=== PATIENT | female | born 1965 | race Caucasian/White ===

== ENCOUNTER → 2016-11-10 | Outpatient (CLI) | payer OTHER ==
[2016-06-14 11:32] VITALS: BP 144/69
[~2016-11-10] MED LIST: ADAL40PE SQ; ASCO500T2 PO; ERGO500012 PO; EZET10TA3 PO; NIAC500T PO; OMEG10005 PO; TEST200V3 IM; THYR30TA2 PO; [UNRECOGNIZED DRUG - OTHER]; [UNRECOGNIZED DRUG - OTHER]
[2016-11-11 01:14] LABS: ESTRADIOL LEVEL 7.1 pg/mL (.); TESTOSTERONE TOTAL 11 ng/dL (3-41); VITAMIN D25(OH)TOTAL 19.6 ng/mL (30.0-100.0)
== END | disposition home or self-care (01) ==
LOC: LAB 08:09
PROVIDERS: ATTEND Nurse Practitioner Women's Health
DX: R73.09 Other abnormal glucose (principal); E55.9 Vitamin D deficiency, unspecified; E78.1 Pure hyperglyceridemia; N95.8 Other specified menopausal and perimenopausal disorders; F52.0 Hypoactive sexual desire disorder
CPT/HCPCS: 36415; 82306; 82670; 82679; 83036; 83525; 84403

== ENCOUNTER → 2017-01-26 | Outpatient (CLI) | payer OTHER ==
[2016-06-14 11:32] VITALS: BP 144/69
[~2017-01-26] MED LIST changes: +BARIUM SULFATE 60% 355 ML SUSP PO ONE
--- NOTE | 2017-01-26 09:22 | RAD ---
Small bowel series, 01/26/2017: History: Crohn's disease The preliminary abdominal image demonstrates a nonspecific gas pattern. Surgical sutures are present in the right upper quadrant. Overhead and spot films were obtained following oral ingestion of liquid barium. 1.8 minutes of fluoroscopy time was utilized. There is prompt passage of the barium through the small bowel into the colon. The small bowel loops are of normal caliber with no evidence of thickening of their folds. This patient has undergone previous distal ileal resections. The ileocolic anastomosis is widely patent. No distal ileal stricture or fistula tract is evident. The visualized portions of the right colon demonstrates slight mucosal irregularity. IMPRESSION: 1. No significant small bowel abnormality is detected. 2. Unremarkable ileocolic anastomosis. 3. Minimal mucosal irregularity in the right colon suggesting active inflammation.
== END | disposition home or self-care (01) ==
LOC: RAD 07:29
PROVIDERS: ATTEND Physician Assistant
DX: K50.90 Crohn's disease, unspecified, without complications (principal)
CPT/HCPCS: 74250

== ENCOUNTER → 2017-06-15 | Outpatient (CLI) | payer OTHER ==
[2016-06-14 11:32] VITALS: BP 144/69
[~2017-06-15] MED LIST changes: -BARIUM SULFATE 60% 355 ML SUSP PO ONE; -ERGO500012 PO; +ERGO500027 PO; +EZET10TA18 PO; -EZET10TA3 PO
[2017-06-15 07:23] LABS: BASO % 0 % (0-3); EOS % 4 % (0-3); HEMATOCRIT 42.9 % (36.0-47.0); HEMOGLOBIN 14.4 g/dL (12.0-15.5); LYMPH # 4.1 x10^3/uL (1.0-4.8); LYMPH % 48 % (24-48); MEAN CORPUSCULAR HEMOGLOBIN 30 pg (25-35); MEAN CORPUSCULAR HGB CONC 34 g/dL (31-37); MEAN CORPUSCULAR VOLUME 88 fL (79-100); MONO % 8 % (0-9); NEUT % 40 % (31-73); PLATELET COUNT 203 x10^3/uL (140-400); RED BLOOD COUNT 4.87 x10^6/uL (3.50-5.40); RED CELL DISTRIBUTION WIDTH 14.8 % (11.5-14.5); WHITE BLOOD COUNT 8.6 x10^3/uL (4.0-11.0)
[2017-06-15 07:50] LABS: ALBUMIN 3.9 g/dL (3.4-5.0); ALBUMIN/GLOBULIN RATIO 1.1 (1.0-1.7); ALK PHOS 76 U/L (46-116); ALT (SGPT) 94 U/L (14-59); ANION GAP 9 (6-14); AST (SGOT) 42 U/L (15-37); BLOOD UREA NITROGEN 14 mg/dL (7-20); BUN/CREATININE RATIO 16 (6-20); CALCIUM 10.1 mg/dL (8.5-10.1); CARBON DIOXIDE 28 mmol/L (21-32); CHLORIDE 102 mmol/L (98-107); CHOLESTEROL 287 mg/dL (0-200); CREATININE 0.9 mg/dL (0.6-1.0); GFR 65.2; GLUCOSE 107 mg/dL (70-99); HDLC 35 mg/dL (40-60); NON-HDL CHOLESTEROL 252 mg/dL (0-129); POTASSIUM 4.2 mmol/L (3.5-5.1); SODIUM 139 mmol/L (136-145); TOTAL BILIRUBIN 0.4 mg/dL (0.2-1.0); TOTAL PROTEIN 7.5 g/dL (6.4-8.2); TRIGLYCERIDES 620 mg/dL (0-150)
[2017-06-15 07:53] LABS: CHOLESTEROL/HDL RATIO 8.2; FREE T4 0.8 ng/dL (0.76-1.46)
[2017-06-16 01:11] LABS: VITAMIN D25(OH)TOTAL 16.1 ng/mL (30.0-100.0)
== END | disposition home or self-care (01) ==
LOC: LAB 06:47
PROVIDERS: ATTEND Family Medicine
DX: E03.9 Hypothyroidism, unspecified (principal); E78.5 Hyperlipidemia, unspecified; K50.90 Crohn's disease, unspecified, without complications; R73.09 Other abnormal glucose
CPT/HCPCS: 36415; 80053; 80061; 82306; 83036; 84439; 84443; 85025

== ENCOUNTER → 2017-07-06 | Outpatient (CLI) | payer OTHER ==
[2016-06-14 11:32] VITALS: BP 144/69
--- NOTE | 2017-07-06 10:47 | RAD ---
DATE: 07/06/2017 EXAM: DIGITAL SCREEN BILAT W/CAD HISTORY: Screening COMPARISON: 11/25/2013 This study was interpreted with the benefit of Computerized Aided Detection (CAD). FINDINGS: Breast Density: SCATTERED The breast parenchyma shows scattered fibroglandular densities. Breast parenchyma level B. There has been little change in the appearance of the breasts compared to the previous exam IMPRESSION: Benign findings BI-RADS CATEGORY: 2 BENIGN FINDING(S) RECOMMENDED FOLLOW-UP: 12M 12 MONTH FOLLOW-UP PQRS compliance statement: Patient information was entered into a reminder system with a target due date 07/06/2018 for the next mammogram. Mammography is a sensitive method for finding small breast cancers, but it does not detect them all and is not a substitute for careful clinical examination. A negative mammogram does not negate a clinically suspicious finding and should not result in delay in biopsying a clinically suspicious abnormality. "Our facility is accredited by the [employer] Mammography Program."
--- NOTE | 2017-07-06 11:04 | RAD ---
Indication abnormal liver function tests. Grayscale imaging was performed. Examination was targeted to the right upper quadrant. Note is made of a previous abdominal ultrasound examination of the abdomen over 11 years ago interpreted as normal. There is increased attenuation of the ultrasound beam by the liver compatible with fatty infiltration. A focal mass lesion is not seen in the visualized liver. The gallbladder appears normal. The common bile duct of approximately 4 mm is normal. The visualized pancreas appeared unremarkable. The entire tail was not seen. The inferior vena cava appeared normal. The right kidney appeared unremarkable. IMPRESSION: Fatty infiltration of the liver. No additional finding seen in the right upper quadrant
== END | disposition home or self-care (01) ==
LOC: US 07:50
PROVIDERS: ATTEND Family Medicine
DX: Z12.31 Encounter for screening mammogram for malignant neoplasm of breast (principal); K76.0 Fatty (change of) liver, not elsewhere classified; R79.89 Other specified abnormal findings of blood chemistry
CPT/HCPCS: 76700; G0202; 77067

== ENCOUNTER → 2017-08-24 | Outpatient (CLI) | payer OTHER ==
[2016-06-14 11:32] VITALS: BP 144/69
== END | disposition home or self-care (01) ==
LOC: LAB 08:13
PROVIDERS: ATTEND Physician Assistant
DX: K50.90 Crohn's disease, unspecified, without complications (principal)
CPT/HCPCS: 36415; 82607; 86140; 86481

== ENCOUNTER → 2017-08-24 | Outpatient (CLI) | payer OTHER ==
[2016-06-14 11:32] VITALS: BP 144/69
[2017-08-24 09:02] LABS: ALBUMIN 3.9 g/dL (3.4-5.0); CALCIUM 9.5 mg/dL (8.5-10.1); CREATININE 0.9 mg/dL (0.6-1.0); GFR 65.2; POTASSIUM 4.3 mmol/L (3.5-5.1); TOTAL BILIRUBIN 0.5 mg/dL (0.2-1.0); TOTAL PROTEIN 7.8 g/dL (6.4-8.2)
[2017-08-24 09:04] LABS: CHOLESTEROL/HDL RATIO 4.3
== END | disposition home or self-care (01) ==
LOC: LAB 08:07
PROVIDERS: ATTEND Family Medicine
DX: E78.5 Hyperlipidemia, unspecified (principal)
CPT/HCPCS: 36415; 80053; 80061

== ENCOUNTER → 2017-11-21 | Outpatient (CLI) | payer OTHER ==
[2017-11-21 08:44] LABS: ALBUMIN 3.8 g/dL (3.4-5.0); ALBUMIN/GLOBULIN RATIO 1.1 (1.0-1.7); ALK PHOS 76 U/L (46-116); ALT (SGPT) 148 U/L (14-59); ANION GAP 11 (6-14); AST (SGOT) 73 U/L (15-37); BLOOD UREA NITROGEN 12 mg/dL (7-20); BUN/CREATININE RATIO 13 (6-20); CALCIUM 9.5 mg/dL (8.5-10.1); CARBON DIOXIDE 26 mmol/L (21-32); CHLORIDE 104 mmol/L (98-107); CHOLESTEROL 217 mg/dL (0-200); CREATININE 0.9 mg/dL (0.6-1.0); GFR 65.2; GLUCOSE 108 mg/dL (70-99); HDLC 47 mg/dL (40-60); LDLC 113 mg/dL (0-100); NON-HDL CHOLESTEROL 170 mg/dL (0-129); POTASSIUM 4.4 mmol/L (3.5-5.1); SODIUM 141 mmol/L (136-145); TOTAL BILIRUBIN 0.5 mg/dL (0.2-1.0); TOTAL PROTEIN 7.4 g/dL (6.4-8.2); TRIGLYCERIDES 287 mg/dL (0-150); VLDLC 57 mg/dL (0-40)
[2017-11-21 08:46] LABS: CHOLESTEROL/HDL RATIO 4.6
[2017-11-22 04:23] LABS: HEMOGLOBIN A1C 5.5 % (4.8-5.6)
== END | disposition home or self-care (01) ==
LOC: LAB 08:05
DX: E78.5 Hyperlipidemia, unspecified (principal); R73.09 Other abnormal glucose
CPT/HCPCS: 36415; 80053; 80061; 83036

== ENCOUNTER → 2018-03-14 | Outpatient (CLI) | payer OTHER | END | disposition home or self-care (01) | LOC: US 14:04 | DX: R22.43 Localized swelling, mass and lump, lower limb, bilateral (principal) | CPT/HCPCS: 93970 ==

== ENCOUNTER → 2018-03-15 | Outpatient (CLI) | payer OTHER ==
[2018-03-15 09:16] LABS: ALBUMIN 4.1 g/dL (3.4-5.0); ALBUMIN/GLOBULIN RATIO 1.1 (1.0-1.7); BLOOD UREA NITROGEN 12 mg/dL (7-20); CALCIUM 9.1 mg/dL (8.5-10.1); CREATININE 0.9 mg/dL (0.6-1.0); GLUCOSE 142 mg/dL (70-99); TOTAL PROTEIN 7.8 g/dL (6.4-8.2)
[2018-03-15 09:17] LABS: ALK PHOS 72 U/L (46-116); ALT (SGPT) 102 U/L (14-59); ANION GAP 6 (6-14); AST (SGOT) 53 U/L (15-37); BUN/CREATININE RATIO 13 (6-20); CARBON DIOXIDE 29 mmol/L (21-32); CHLORIDE 103 mmol/L (98-107); CHOLESTEROL 218 mg/dL (0-200); GFR 65.2; HDLC 40 mg/dL (40-60); LDLC 112 mg/dL (0-100); NON-HDL CHOLESTEROL 178 mg/dL (0-129); POTASSIUM 4.5 mmol/L (3.5-5.1); SODIUM 138 mmol/L (136-145); TOTAL BILIRUBIN 0.7 mg/dL (0.2-1.0); TRIGLYCERIDES 332 mg/dL (0-150); URIC ACID 6.7 mg/dL (2.6-6.0); VLDLC 66 mg/dL (0-40)
[2018-03-15 09:18] LABS: CHOLESTEROL/HDL RATIO 5.5
[2018-03-15 09:29] LABS: % SAT IRON 24 % (15-34); IRON,SERUM 83 ug/dL (50-170)
[2018-03-15 09:34] LABS: CREATINE KINASE 137 U/L (26-192)
[2018-03-15 09:34] LABS: C-REACTIVE PROTEIN 2.3 mg/L (0-3.3); FERRITIN 115 ng/mL (8-252)
[2018-03-15 10:01] LABS: SEDIMENTATION RATE 3 (0-25)
[2018-03-15 10:25] LABS: VITAMIN-B12 440 pg/mL (247-911)
[2018-03-15 23:13] LABS: ALPHA 1 ANTITRYPSIN 111 mg/dL (90-200); IMMUNOGLOBULIN A 189 mg/dL (87-352)
[2018-03-17 02:09] LABS: HBcIGM CONFIRMATION Negative (Negative); HCV ANTIBODY <0.1 s/co ratio (0.0-0.9); HEP A CONFIRMATION Negative (Negative); HEP B SURFACE AG Negative (Negative)
[2018-03-17 20:13] LABS: ANA INTERP Positive (.)
[2018-03-18 11:20] LABS: TRANSGLUTAMINASE IGA AB <2 U/mL (0-3)
[2018-03-18 13:18] LABS: MITOCHONDRIAL ABDY 3.9 Units (0.0-20.0); SMOOTH MUSCLE AB 10 Units (0-19)
[2018-03-18 14:23] LABS: CERULOPLASMIN 20.3 mg/dL (19.0-39.0)
[2018-03-18 15:22] LABS: A1A SERUM 107 mg/dL (90-200)
[2018-03-19 11:03] LABS: T-SPOT TB TEST(OXFORD) SEE SEPARATE REPORT
== END | disposition home or self-care (01) ==
LOC: LAB 08:05
DX: E78.5 Hyperlipidemia, unspecified (principal); M25.571 Pain in right ankle and joints of right foot; E55.9 Vitamin D deficiency, unspecified
CPT/HCPCS: 36415; 80053; 80061; 80074; 82103; 82104; 82390; 82550; 82607; 82728; 82784; 83516; 83520; 83540; 83550; 84550; 85651; 86038; 86140; 86255

== ENCOUNTER → 2018-08-14 | Outpatient (CLI) | payer OTHER ==
[2016-06-14 11:32] VITALS: BP 144/69
[2018-08-14 08:38] LABS: BASO % 0 % (0-3); EOS # 0.3 x10^3/uL (0.0-0.7); EOS % 4 % (0-3); HEMATOCRIT 40.9 % (36.0-47.0); HEMOGLOBIN 14.5 g/dL (12.0-15.5); LYMPH # 3.2 x10^3/uL (1.0-4.8); LYMPH % 46 % (24-48); MEAN CORPUSCULAR HEMOGLOBIN 31 pg (25-35); MEAN CORPUSCULAR HGB CONC 35 g/dL (31-37); MEAN CORPUSCULAR VOLUME 88 fL (79-100); MONO # 0.6 x10^3/uL (0.0-1.1); MONO % 9 % (0-9); NEUT # 2.9 x10^3uL (1.8-7.7); NEUT % 41 % (31-73); PLATELET COUNT 230 x10^3/uL (140-400); RED BLOOD COUNT 4.68 x10^6/uL (3.50-5.40); RED CELL DISTRIBUTION WIDTH 13.7 % (11.5-14.5)
[2018-08-14 08:50] LABS: ALBUMIN/GLOBULIN RATIO 1.1 (1.0-1.7); CALCIUM 9.7 mg/dL (8.5-10.1); GFR 57.6; POTASSIUM 4.7 mmol/L (3.5-5.1); TOTAL BILIRUBIN 0.5 mg/dL (0.2-1.0); TOTAL PROTEIN 7.5 g/dL (6.4-8.2)
[2018-08-14 09:02] LABS: FREE T4 0.86 ng/dL (0.76-1.46); THYROID STIM HORMONE (TSH) 1.586 uIU/mL (0.358-3.74)
[2018-08-14 19:17] LABS: HEMOGLOBIN A1C 5.8 % (4.8-5.6)
== END | disposition home or self-care (01) ==
LOC: LAB 08:11
PROVIDERS: ATTEND Family Medicine
DX: E78.5 Hyperlipidemia, unspecified (principal); E03.9 Hypothyroidism, unspecified; K50.90 Crohn's disease, unspecified, without complications; R73.09 Other abnormal glucose
CPT/HCPCS: 36415; 80053; 80061; 83036; 84439; 84443; 85025

== ENCOUNTER → 2018-09-18 | Day surgery (SDC) | payer OTHER ==
[~2018-09-18] MED LIST changes: +ASCO10002 PO; +CHOL100013 PO; +HYDR200T71 PO; +HYDROmorphone 2 MG/ML VIAL IV PRN; +IV RINGERS,LACTATED 1000ML 1,000 ML IV SCH; +LIDOCAINE 1% PF 2 ML VIAL. ID PRN; +MORPHINE SULFATE 2 MG/ML VIAL. IV PRN; +ONDANSETRON PF 4 MG/2 ML VIAL. IV PRN; +PROCHLORPERAZINE 10 MG/2 ML VIAL. IV PRN; +PROPOFOL 20 ML IV ONE; +[UNRECOGNIZED DRUG - CODE] IV; +fentaNYL PF VIAL 100 MCG/2 ML VIAL IV PRN
[2018-09-18 08:21] VITALS: BP 142/77
--- NOTE | 2018-09-18 12:39 | HP ---
ADMIT DATE: 09/18/2018 REFERRING PHYSICIAN: Dr. Anya Chicas. HISTORY OF PRESENT ILLNESS: A 53-year-old female with past medical history significant for longstanding ileocolonic Crohn's, status post resections; hyperlipidemia; anemia; reflux, who has developed drug-induced lupus with Humira. The patient ____ having insurance issues with coverage. Typically, his stools are several hours after meals. Weight and appetite otherwise have been stable. With continued issues and previous anastomotic stricture which had been resected, she is here for surveillance colonoscopy for dysplasia. PAST MEDICAL HISTORY: Crohn's, hypothyroidism, anemia, hyperlipidemia. ALLERGIES: SULFA. HUMIRA. MEDICATIONS: Include vitamin C, vitamin D, Zetia, Plaquenil, thyroid, Stelara. FAMILY HISTORY: Significant for hypertension with mother and maternal grandmother, colon cancer in an aunt. Diabetes in both parents, CVA with ____ grandmother. SOCIAL HISTORY: Smoker, social drinker. PAST SURGICAL HISTORY: Status post ileocolonic resection, , hysterectomy, tubal ligation. REVIEW OF SYSTEMS: Per records. PHYSICAL EXAMINATION: GENERAL: Reveals a well-nourished, well-developed female. VITAL SIGNS: Temperature is 97, pulse 60, respirations 20. HEENT: Normocephalic and atraumatic head. Pupils and extraocular muscles are not tested. Sclerae anicteric. NECK: Supple. LUNGS: Clear. CARDIOVASCULAR: Reveals an S1, S2 without S3, S4 or appreciable murmur. ABDOMEN: Soft abdomen, normal bowel sounds without appreciable hepatosplenomegaly. EXTREMITIES: Reveals no cyanosis, clubbing or edema. IMPRESSION: Crohn's, ileocolonic, status post resections, with multiple anti-TNF medications. We will recommend surveillance biopsies. Risks and benefits have been previously discussed, and she is willing to proceed. HOLLY SANON MD DR: CHIDI/francis JOB#: [id number] / [id number] ecc RECORDS, MEDICAL ANYA CHICAS MD
--- NOTE | 2018-09-19 14:13 | PATHOLOGY ---
[facility] Accession Number: [id number] . 01 Material submitted: . PART A: TRANSVERSE COLON BIOPSY PART B: LEFT COLON BIOPSY . 01 Clinical history: . Crohn's . 02 Diagnosis: A. Small intestine and colonic mucosa, transverse colon biopsies: - Mild nonspecific ileitis without granulomas or specific features. - Focal reactive changes of colonic mucosa. . B. Colonic mucosa, left colon biopsies: - Focal reactive changes of colonic mucosa. QTP/09/19/2018 . 02 Comment: Sections of the transverse colon biopsy reveal segments of small intestine mucosa and colonic mucosa. The small intestine mucosa shows mild nonspecific chronic inflammation with a few admixed neutrophils. There are no granulomas or specific features. The colonic mucosa shows focal reactive mucosal epithelial hyperplastic changes. There is no evidence of a chronic destructive colitis, dysplasia, or malignancy. . Sections of the left colon biopsy reveal multiple segments of colonic mucosa showing focal mucosal epithelial reactive hyperplastic changes. There is no evidence of a chronic destructive colitis, dysplasia, or malignancy. (JPM:[facility] 09/19/2018) . 02 Electronically signed: . Vernon Guerra MD, Pathologist NPI- [id number] . 01 Gross description: . A. Received in formalin labeled "Ashley Patrick, transverse colon BX," are multiple segments of owens soft tissue measuring 1.3 x 0.6 x 0.1 cm in aggregate dimensions. The specimen is filtered and entirely submitted in cassette A1. . B. Received in formalin labeled "Heide Patrickline, left colon BX," are multiple segments of owens soft tissue measuring 1.1 x 0.6 x 0.1 cm in aggregate dimensions. The specimen is filtered and entirely submitted in cassette B1. (TSD; 09/18/2018) TOB/TOB . 02 Pathologist provided ICD-10: K52.9, K50.90 . 02 CPT . 619262, [id number] Specimen Comment: A courtesy copy of this report has been sent to Specimen Comment: [phone], . Specimen Comment: Report sent to / DR CHICAS Performed at: 01 [facility] [address], [place] [id number] MD Ishaan Tran MD Phone: [phone] Performed at: 02 [facility] [address], [place] [id number] MD Vernon Guerra MD Phone: [phone]
== END | disposition home or self-care (01) ==
LOC: ENDOS 06:43
PROVIDERS: ATTEND Internal Medicine Gastroenterology
DX: K52.89 Other specified noninfective gastroenteritis and colitis (principal); K50.80 Crohn's disease of both small and large intestine without complications; K64.0 First degree hemorrhoids; E78.5 Hyperlipidemia, unspecified; D64.9 Anemia, unspecified; K21.9 Gastro-esophageal reflux disease without esophagitis; E03.9 Hypothyroidism, unspecified; Z88.2 Allergy status to sulfonamides; Z79.899 Other long term (current) drug therapy; Z82.49 Family history of ischemic heart disease and other diseases of the circulatory system; Z83.3 Family history of diabetes mellitus; Z80.0 Family history of malignant neoplasm of digestive organs; Z82.3 Family history of stroke; Z90.710 Acquired absence of both cervix and uterus; Z98.890 Other specified postprocedural states; Z98.51 Tubal ligation status
CPT/HCPCS: 45380; 88305; J2704